=== PATIENT | male | born 1990 | race Caucasian/White ===

== ENCOUNTER 2018-05-04 00:30 | Emergency (ER) | payer SELFPAY ==
--- NOTE | 2018-05-04 00:30 | DT_ITS ---
This patient was seen during an EMR downtime April 29, 2018 - May 06, 2018. This patient may have a combination of paper and electronic documentation or all paper documentation. All documentation is viewable within the e-chart portion of [facility] for each patient visit.
== END 2018-05-04 02:30 | disposition home or self-care (01) ==
LOC: ED 05-05 11:37
PROVIDERS: Emergency Provider Emergency Medicine
DX: F32.9 Major depressive disorder, single episode, unspecified (principal)
CPT/HCPCS: 99282